=== PATIENT | male | born 1995 | race Hispanic/Latino ===

== ENCOUNTER 2022-10-04 15:53 | Emergency (ER) | payer OTHER ==
[~2022-10-04] VITALS: Ht 180.3 cm; Wt 95.3 kg
[2022-10-04 15:57] VITALS: BP 135/83
[2022-10-04] MEDS: LIDOCAINE HCL 1% 20 ML VIAL ONE (16:47)
[2022-10-04] MEDS ORDERED: SULF1TAB42 PO (16:58)
[2022-10-04] MEDS: INSULIN HUMULIN R 100 UNIT/ML 3ML SQ ONE (17:12)
== END 2022-10-04 17:40 | disposition home or self-care (01) ==
LOC: EDH 15:53
DX: L02.212 Cutaneous abscess of back [any part, except buttock and flank] (principal); E11.65 Type 2 diabetes mellitus with hyperglycemia
CPT/HCPCS: 99283; 10061; 82948; 96372; J1815

== ENCOUNTER 2022-12-11 14:12 | Emergency (ER) | payer OTHER ==
[~2022-12-11] VITALS: Ht 177.8 cm; Wt 97.5 kg
[~2022-12-11 14:12] MED LIST: SULF1TAB42 PO
[2022-12-11] MEDS ORDERED: MUPI22OI2 TP (14:46)
[2022-12-11] MEDS ORDERED: TETANUS/DIPHTHERIA TOXOID [ADULT] 0.5 ML VIAL IM ONE (15:00)
[2022-12-11 15:51] VITALS: BP 126/74
== END 2022-12-11 15:20 | disposition home or self-care (01) ==
LOC: EDH 14:12
DX: T22.211D Burn of second degree of right forearm, subsequent encounter (principal); E11.9 Type 2 diabetes mellitus without complications; Z79.899 Other long term (current) drug therapy; X19.XXXD Contact with other heat and hot substances, subsequent encounter
CPT/HCPCS: 90471; 90714

== ENCOUNTER 2025-03-25 18:35 | Emergency (ER) | payer SELFPAY ==
[~2025-03-25] VITALS: Ht 180.3 cm; Wt 97.5 kg
[~2025-03-25 18:35] MED LIST changes: +MUPI22OI2 TP; +PANT40TA55 PO
--- NOTE | 2025-03-25 19:00 | HMCIMG ---
PORTABLE CHEST RADIOGRAPH INDICATION: sepsis COMPARISON: None FINDINGS: Heart size is normal. The pulmonary vascularity and izzy appear normal. No abnormal pulmonary parenchymal opacity or consolidation identified. No significant pleural effusion noted. No pneumothorax detected. IMPRESSION: No radiographic evidence for any acute cardiopulmonary process.
[2025-03-25 19:24] LABS: BASOPHILS # (AUTO) 0.06 K/uL (0.00-0.20); BASOPHILS % (AUTO) 0.5 % (0.0-5.0); EOSINOPHILS % (AUTO) 0.8 % (0.0-8.0); HEMATOCRIT 38.3 % (42-54); IMMATURE GRANULOCYTE ABSOLUTE 0.04 K/uL (0-1); LYMPHOCYTES # (AUTO) 1.5 K/uL (1.0-4.8); LYMPHOCYTES % (AUTO) 12.6 % (21.0-51.0); MEAN CORPUSCULAR HEMOGLOBIN 26.7 pg (27.0-33.0); MEAN CORPUSCULAR HGB CONC 33.4 g/dL (32.0-36.0); MONOCYTES # (AUTO) 1.2 K/uL (0.1-1.0); MONOCYTES % (AUTO) 10.2 % (3.0-13.0); NEUTROPHILS # (AUTO) 9.2 K/uL (1.8-7.7); NEUTROPHILS % (AUTO) 75.6 % (40.0-77.0); PLATELET COUNT (AUTO) 260 K/uL (130-400); RED BLOOD CELL COUNT(AUTO) 4.79 MIL/uL (4.50-6.20); RED CELL DISTRIBUTION WIDTH 12.6 % (11.0-15.5); WHITE BLOOD COUNT (AUTO) 12.2 K/uL (4.8-10.8)
[2025-03-25 20:01] LABS: CREATININE 1.1 mg/dL (0.5-1.3)
--- NOTE | 2025-03-25 21:07 | ERN ---
ED Note History of Present Illness Stated Complaint: ABSCESS TO RT GROIN Chief Complaint: Abscess Time Seen by MD: 18:41 Time Seen by Midlevel: 18:45 Dictation: 29-year-old male coming in with complaints of an abscess to the right groin that has been going on for three days. Patient states he went to get evaluated today because he started educated fever and nauseated. Patient states he is diabetic and has not been on meds ever. Allergies: Coded Allergies: No Known Drug Allergies (Unverified Allergy, Unknown, 10/04/22) Home Meds Active Scripts Pantoprazole Sodium (Protonix) 40 Mg Ectab, 1 TAB PO DAILY for 30 Days, #30 TAB 0 Refills Prov:MANUELITO DAVID MD 09/09/24 Mupirocin (Mupirocin Ointment) 22 Gm Oint, 1 GM TP BID, #1 TUBE Prov:FELTON MOHAMUD V JAVA SDET 12/11/22 Sulfamethoxazole/Trimethoprim (Bactrim Ds Tablet) 1 Each Tablet, 1 TAB PO BID for 7 Days, #14 TAB 0 Refills Prov:KAYLI UMANA JAVA SDET 10/04/22 Past Medical History Past Medical History: Diabetes-Type II, Hypertension Additional Past Medical Hx: NON COMPLIANT DIABETIC Surgical History: None Review of System Dictation Constitutional: Negative for fever,chills, and weight loss Eyes: Negative for injury, pain,redness, and discharge ENT: Negative for injury,pain or swelling Cardiovascular: Negative for chest pain, palpitations, and edema Respiratory: Negative for shortness of breath, cough, and wheezing, Abdomen/GI: Negative for abdominal pain, nausea, vomiting, diarrhea, and constipation Back: Negative for injury and pain : Negative for injury, bleeding and discharge MS/Extremity: Negative for injury and deformity Skin: Negative for rash, and discoloration, abscess to the right groin Neuro: Negative for headache, weakness, numbness, tingling, and seizure Psych: Negative for suicide ideation, homicidal ideation, and hallucinations Review of Systems: was completed Initial Vital Sign VS Vital Signs Date Time Temp Pulse Resp B/P (MAP) Pulse Ox O2 Delivery O2 Flow Rate FiO2 03/25/25 18:39 100.9 106 22 159/91 98 Room Air 0 03/25/25 20:52 21 Physical Exam Dictation General: awake, alert, NAD Head/Face: Normocephalic, atraumatic Eyes: PERRL, EOMI, vision at baseline ENT: oral cavity clear, TMs clear, no signs of infection Neck: Trachea midline, supple, no nuchal rigidity Cardiovascular: RRR, normal S1/S2, No MRGs, no JVD Respiratory: CTAB, no respiratory distress, No rales or wheezes Abdomen: Soft, non-tender, non-distended, normal bowel sounds, no guarding or rebound. Skin: Warm, dry, normal turgor, no rash, there is a abscess with fluctuance and drainage and foul odor to the right groin area pain on palpation MS/Extremity: Pulses equal, no cyanosis, neurovascular intact, FROM Neuro: COAx4, GCS 15, strength 5/5, CN 2-12 intact, normal cerebellar exam, normal gait, Psych: Normal behavior, mood, and affect normal Results (Laboratory/Radiology) Laboratory/Radiology Laboratory Tests Test 03/25/25 19:13 03/25/25 20:55 White Blood Count 12.2 K/uL (4.8-10.8) H Red Blood Count 4.79 MIL/uL (4.50-6.20) Hemoglobin 12.8 g/dL (14.0-18.0) L Hematocrit 38.3 % (42-54) L Mean Corpuscular Volume 80.0 fL (79-99) Mean Corpuscular Hemoglobin 26.7 pg (27.0-33.0) L Mean Corpuscular Hemoglobin Concent 33.4 g/dL (32.0-36.0) Red Cell Distribution Width 12.6 % (11.0-15.5) Platelet Count 260 K/uL (130-400) Mean Platelet Volume 10.1 fL (7.5-10.5) Immature Granulocyte % (Auto) 0.3 % (0-1) Neutrophils (%) (Auto) 75.6 % (40.0-77.0) Lymphocytes (%) (Auto) 12.6 % (21.0-51.0) L Monocytes (%) (Auto) 10.2 % (3.0-13.0) Eosinophils (%) (Auto) 0.8 % (0.0-8.0) Basophils (%) (Auto) 0.5 % (0.0-5.0) Neutrophils # (Auto) 9.2 K/uL (1.8-7.7) H Lymphocytes # (Auto) 1.5 K/uL (1.0-4.8) Monocytes # (Auto) 1.2 K/uL (0.1-1.0) H Eosinophils # (Auto) 0.10 K/uL (0.00-0.70) Basophils # (Auto) 0.06 K/uL (0.00-0.20) Absolute Immature Granulocyte (auto 0.04 K/uL (0-1) Nucleated Red Blood Cells 0.0 % (0.0-0.19) Sodium Level 138 mmol/L (136-145) Potassium Level 4.0 mmol/L (3.5-5.1) Chloride Level 99 mmol/L (101-111) L Carbon Dioxide Level 29 mmol/L (21-32) Blood Urea Nitrogen 21 mg/dL (7-18) H Creatinine 1.1 mg/dL (0.5-1.3) Glomerular Filtration Rate Calc 94 mL/min (>90) Random Glucose 210 mg/dL (70-105) H Lactic Acid Level 2.0 mmol/L (0.8-2.5) Total Calcium 9.3 mg/dL (8.5-10.1) Procalcitonin < 0.05 ng/mL (0.05-0.5) L Urine Color COLORLESS (YELLOW) Urine Appearance CLEAR (CLEAR) Urine pH 6.0 (5.0-8.0) Urine Specific [place] 1.008 (1.001-1.031) Urine Protein 100 mg/dL (NEGATIVE) H Urine Glucose (UA) NEGATIVE mg/dL (NEGATIVE) Urine Ketones NEGATIVE mg/dL (NEGATIVE) Urine Occult Blood MODERATE (NEGATIVE) H Urine Nitrate NEGATIVE (NEGATIVE) Urine Bilirubin NEGATIVE mg/dL (NEGATIVE) Urine Urobilinogen 0.2 mg/dL (0.2-1.0) Urine Leukocyte Esterase NEGATIVE [place]/uL Urine RBC 11-25 /HPF (0-1) H Urine WBC 0-1 /HPF (0-1) Urine Bacteria None /HPF (None Seen) Labs Reviewed?: Yes ED Course ED Course Orders Procedure Category Date Status Time Cbc With Differential LAB 03/25/25 Complete 18:44 Basic Metabolic Panel LAB 03/25/25 Complete 18:44 Lactic Acid LAB 03/25/25 Complete 18:44 Blood Cult ROSE MARIE 03/25/25 In Process 18:44 Urinalysis Profile LAB 03/25/25 Complete 18:44 Chest 1vw RAD 03/25/25 Resulted 18:44 Procalcitonin LAB 03/25/25 Complete 18:44 Ct Pelvis W/Contrast CT 03/25/25 Resulted 21:04 Ceftriaxone 1g Vial PHA 03/25/25 Complete (Rocephine 1g Inj) 21:04 Iohexol (Omnipaque) PHA 03/25/25 Complete 21:32 Lidocaine Hcl 1% 20ml PHA 03/25/25 Complete Vial (Lidocaine Hc 22:30 Current Medications Medications (Trade) Dose Ordered Sig/Rita Route PRN Reason Start Time Stop Time Status Last Admin Dose Admin Ceftriaxone Sodium (ROCEphine 1G INJ) 1 gm ONCE STAT IVPB 03/25/25 21:04 03/25/25 21:07 DC 03/25/25 21:56 Iohexol (Omnipaque) 35,000 mg STK-MED ONCE IV 03/25/25 21:32 03/25/25 21:33 DC Lidocaine HCl (Lidocaine HCl 1% 20ml Vial) ONCE ONCE INJ 03/25/25 22:30 03/25/25 22:31 DC 03/25/25 22:25 Vital Signs Date Time Temp Pulse Resp B/P (MAP) Pulse Ox O2 Delivery O2 Flow Rate FiO2 03/25/25 20:52 101.1 106 22 159/98 98 Room Air* 0 21 03/25/25 18:39 100.9 106 22 159/91 98 Room Air 0 Medical Decision Making MDM MDM: 29-year-old male coming in with complaints of an abscess to the right groin that has been going on for three days. Patient states he went to get evaluated today because he started educated fever and nauseated. Patient states he is diabetic and has not been on meds ever. On physical examination patient has a scrotal wall abscess to the right side. CT scan obtained confirms this. The abscess was drained with no complications. Packing was applied. Patient was given 1 g of ceftriaxone in the emergency department. We did offer to admit the patient for further observation and IV antibiotics however he was refusing to be admitted and would like to be discharged home. We will discharged home on amoxicillin. Red flag symptoms discussed. Return precautions discussed Differential diagnosis: Scrotal abscess, cellulitis Rationale: Tests considered and ordered secondary to shared decision making incl ude: labs, ECG and radiology Previous outside records reviewed: Old ER visits. Risk of complication and/or morbidity or mortality of patient management: None Medications-Per medication reconciliation Need for hospitalization: Patient does meet criteria for hospitalization. Need for emergency major/minor surgery: No There are no social concerns with this patient. Prescription drug management Prescriptions will include symptomatic care Patient's prior external medical records from other ER visits were reviewed by me as indicated. Prior testing and results from previous visits were reviewed. Prior tests were taken into account with medical decision making and resource utilization, independent historian/historians were used to obtain complete medical history. I independently interpreted the test that were performed, results were reviewed by me and considered findings on radiology if ordered. Medical management and examination interpretation discussions were had by me with other qualified healthcare professionals as indicated for the patient's care. DX & DISP Disposition: Discharge Departure Impression: Primary Impression: Scrotal wall abscess Condition: Stable Scripts Amoxicillin/Potassium Clav (Amox Tr-K Clv 875-125 mg Tab) 875 Mg-125 Mg Tablet 1 EACH PO BID for 10 Days, #20 TAB 0 Refills Prov: FISH CENTENO 03/25/25 Referrals: SELF,REFERRAL (PCP) Time of Disposition: 23:12 I have reviewed the case, and I agree with, Diagnosis and Plan I performed the substantive portion of the visit. I have reviewed and personally made and approve the management plan that is documented in the note by myself or the DALILA. I acknowledge for responsibility for the patient's management plan. MIRANDA SANCHEZ NP March 25, 2025 21:07 FISH CENTENO March 25, 2025 23:15
[2025-03-25 21:25] LABS: APPEARANCE,URINE CLEAR (CLEAR); BILIRUBIN,URINE NEGATIVE (NEGATIVE); COLOR,URINE COLORLESS (YELLOW); GLUCOSE, URINE (UA) NEGATIVE (NEGATIVE); KETONES,URINE NEGATIVE (NEGATIVE); LEUKOCYTE ESTERASE ,URINE NEGATIVE Leu/uL (NEGATIVE); NITRATE,URINE NEGATIVE (NEGATIVE); OCCULT BLOOD,URINE MODERATE (NEGATIVE); PROTEIN,URINE 100 mg/dL (NEGATIVE); UROBILINOGEN,URINE 0.2 mg/dL (0.2-1.0)
[2025-03-25 21:28] LABS: ADD UA MICROSCOPIC YES
[2025-03-25 21:30] LABS: WBC,URINE 0-1 /HPF (0-1)
[2025-03-25] MEDS ORDERED: IOHEXOL 350 MG/ML 100ML INFUS..BTL IV ONE (21:32)
--- NOTE | 2025-03-25 21:51 | HMCIMG ---
CT PELVIS W/CONTRAST HISTORY: abscess to groin TECHNIQUE: CT pelvis was performed after intravenous administration of contrast. Coronal and sagittal reformats were obtained. CT was performed with one or more of the following dose reduction techniques: Automated exposure control, adjustment of the mA and/or kV according to the patient's size, or use of the iterative reconstruction technique. FINDINGS: There is skin thickening and subcutaneous stranding involving the right inguinal region as well as 2 cm hypodense focus in the area concerning for phlegmon/developing abscess. No soft tissue gas is identified. Prominent right groin lymph nodes are seen likely reactive. Partially distended urinary bladder. Normal appendix. IMPRESSION: 1. There is skin thickening and subcutaneous stranding involving the right inguinal region as well as 2 cm hypodense focus in the area concerning for phlegmon/developing abscess. No soft tissue gas is identified. 2. Prominent right groin lymph nodes are seen likely reactive.
[2025-03-25] MEDS: cefTRIAXone 1G VIAL IVPB STA (21:56)
[2025-03-25] MEDS: LIDOCAINE HCL 1% 20 ML VIAL INJ ONE (22:25)
[2025-03-25] MEDS ORDERED: AMOX1TAB16 PO (23:14)
[2025-03-25 23:21] VITALS: BP 149/88; PULSE 97; RESP 18; TEMP 98.6; O2SAT 99
== END 2025-03-25 23:21 | disposition home or self-care (01) ==
LOC: EDH 18:35
DX: N49.2 Inflammatory disorders of scrotum (principal); E11.9 Type 2 diabetes mellitus without complications; I10 Essential (primary) hypertension; Z79.899 Other long term (current) drug therapy
CPT/HCPCS: 99285; 96374; 72193; 71045; 80048; 85025; 87040 ×2; 83605; 81001; 36415; 84145; J0696; Q9967